=== PATIENT | male | born 1945 | race Caucasian/White ===

== ENCOUNTER 2017-01-09 12:12 | Emergency (ER) | payer OTHER ==
[2017-01-09 13:42] LABS: Hematocrit 46 % (42-52); Mean Corpuscular HGB Conc 33 g/dl (31-36); Mean Corpuscular Hemoglobin 31 pg (27-31); Mean Corpuscular Volume 94 fL (80-94); Mean Platelet Volume 7 um3 (7.4-10.4); Red Blood Count 4.83 10^6/ul (4.0-5.4); Red Cell Distribution Width 14 % (10.5-15); White Blood Count 13.3 10^3/ul (3.5-10.8)
[2017-01-09] MEDS ORDERED: Morphine INJ* 4 MG/ML 1 ML SYRINGE IV ONE (13:56)
[2017-01-09] MEDS ORDERED: Ondansetron INJ* 2 MG/ML VIAL IV ONE (13:56)
[2017-01-09 14:21] LABS: EGFR Non-African American 63.8 (>60); Potassium 4.4 mmol/L (3.5-5.0)
[2017-01-09 15:16] LABS: BUN/Creatinine Ratio 24.8 (8-20)
[2017-01-09 15:58] LABS: Urine Bacteria Absent (Absent); Urine Bilirubin Negative (Negative); Urine Glucose 2+(150 mg/dL) (Negative); Urine Nitrite Negative (Negative)
[2017-01-09] MEDS ORDERED: Sulfamethox/Trimethoprim DS 800/160* TAB PO ONE (15:59)
[2017-01-09 16:31] VITALS: BP 156/79
--- NOTE | 2017-01-09 19:23 | CONS ---
CC: Dr. Wesley Noble, [facility] * CONSULTATION REPORT: DATE OF CONSULT: 01/09/17 - emergency room consult. HISTORY OF PRESENT ILLNESS: I was asked by the emergency room staff to see this 71-year-old white male because of urinary retention. Mr. Troncoso has a long history of obstructive voiding symptoms with decreased urinary stream and spraying with his voiding. It has not been bothersome enough to require urological consultation. Over the last 2 to 3 days, his voiding symptoms have gotten a lot worse and he presented to the emergency room today in total urinary retention. He did not have any fever, chills, or gross hematuria. In the emergency room, bladder ultrasound showed urinary retention. Attempt at placement of a Travis catheter by the nursing staff was unsuccessful because of obstruction at the level of the urethral meatus. An urgent consultation was requested. Past history is otherwise completely negative. No past history of any renal diseases or calculi. No other history of urinary retention. He is known to have a very large right inguinal hernia. He, however, has been able to reduce it. He has not sought surgical consult for it. PHYSICAL EXAM: On physical exam, he is a healthy-looking male, who is in marked discomfort because of urinary retention. His vital signs are normal. Exam of the abdomen showed significant degree of suprapubic distention and tenderness. He is uncircumcised. 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 There is a very large right inguinal hernia. The left testis appears normal. Rectal exam shows a slightly enlarged but non- suspicious and non-indurated prostate. Attempt at placement of a Travis catheter was not successful because of severe stenosis at the level of the urethral meatus and the fossa navicularis. Serial dilations were then carried starting with 12-Malawian stiff catheter and up to 16Fr. As soon as the meatus was dilated, there was a gush of urine indicating the obstruction is at the level of the meatus and not at the level of the prostate. A 16-Malawian Travis catheter was then successfully introduced inside the bladder. A total of 1,500 cc of urine was drained. The patient felt immediate relief. IMPRESSION: 1. 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 Urethra dilated and the bladder drained. 2. Very Large right inguinal hernia. PLAN: To keep him on catheter drainage. I will see him in my office in a few days where the Travis will be removed and he will be instructed how to perform periodic dilations of the distal urethra to keep it open. He will need to be referred for General Surgery for repair of his right inguinal hernia. [id number]/[facility] #: [id number] MTDD
--- NOTE | 2017-01-12 10:23 | PN ---
Progress Note - Progress Note Date of Service: 01/09/17 Note: patient treated for UTI with Bactrim at d/c. urine culture result showed growth of strep group b which is susceptible to commonly used antimicrobials to treat UTI. No further change needed at this time.
--- NOTE | 2017-01-28 15:17 | ED ---
Heather Payne Edward, scribed for Francisco Chase MD on 01/09/17 at 1243 . GI/ HPI - HPI Summary HPI Summary: 71 y/o male presents to ED c/o ABD and testicular discomfort described as a pressure radiating to the back and decreased urination. The ABD pain is located in the suprapubic region. Pt has difficulty standing due to pain. The pain in the back is resolved now. The pt last urinated at midnight this morning with dysuria (trickle). Pt also states he feels like he has a "jock itch on the inside of his penis". Denies trauma. PMHx coxic, no kidney stones, no prostate problems. Associated sx: diaphoresis (this morning), and poor PO intake. Denies hematuria. - History of Current Complaint Chief Complaint: EDUrogenitalProblems Time Seen by Provider: 01/09/17 12:39 Stated Complaint: UNABLE TO GO TO URINATE Hx Obtained From: Patient Onset/Duration: Started Hours Ago - Last urination last night, Still Present Timing: Constant Pain Intensity: 10 Location of Pain: Suprapubic Pain Characteristics: Pressure Pain Radiates to: Back Associated Signs and Symptoms: Positive: Back Pain, Diaphoresis, Dysuria, Abdominal Pain, Other: - Hasn't urinated since midnight this morning. 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 Negative: Fever, Chills Negative: Erythema Negative: Sore Throat Negative: Chest Pain Negative: Shortness Of Breath, Cough Positive: Abdominal Pain - Suprapubic pressure radiating to the back. Negative : Vomiting, Nausea Genitourinary: Other - Decreased frequency. Pressure in testicles. "Jock itch on the inside of the penis" Positive: dysuria. Negative: hematuria Negative: Myalgia Negative: Rash Neurological: Other - No dizziness All Other Systems Reviewed And Are Negative: Yes Physical Exam - Summary Physical Exam Summary: Constitutional: Well-developed, Well-nourished, Alert. (-) Distressed Skin: Warm, Dry HENT: Normocephalic; Atraumatic Eyes: Conjunctiva normal Neck: Musculoskeletal ROM normal neck. (-) JVD, (-) Stridor, (-) Tracheal deviation Cardio: Rhythm regular, rate normal, Heart sounds normal; Intact distal pulses; The pedal pulses are 2+ and symmetric. Radial pulses are 2+ and symmetric. (-) Murmur Pulmonary/Chest wall: Effort normal. (-) Respiratory distress, (-) Wheezes, (-) Rales Abd: Bladder fullness and TTP on exam. Soft, (-) Distension, (-) Guarding, (-) Rebound Musculoskeletal: (-) Edema Lymph: (-) Cervical adenopathy Neuro: Alert, Oriented x3 Psych: Mood and affect Normal Triage Information Reviewed: Yes Vital Signs On Initial Exam: Initial Vitals Temp Pulse Resp BP Pulse Ox 97.1 F 52 16 154/94 98 01/09/17 12:22 01/09/17 12:22 01/09/17 12:22 01/09/17 12:22 01/09/17 12:22 Vital Signs Reviewed: Yes Diagnostics - Vital Signs Vital Signs Temp Pulse Resp BP Pulse Ox 01/09/17 12:22 97.1 F 52 16 154/94 98 - Laboratory Lab Results: Lab Results 01/09/17 01/09/17 01/09/17 Range/Units 13:25 13:25 15:45 WBC 13.3 H (3.5-10.8) 10^3/ul RBC 4.83 (4.0-5.4) 10^6/ul Hgb 15.0 (14.0-18.0) g/dl Hct 46 (42-52) % MCV 94 (80-94) fL MCH 31 (27-31) pg MCHC 33 (31-36) g/dl RDW 14 (10.5-15) % Plt Count 250 (150-450) 10^3/ul MPV 7 L (7.4-10.4) um3 Sodium 137 (133-145) mmol/L Potassium 4.4 (3.5-5.0) mmol/L Chloride 107 (101-111) mmol/L Carbon Dioxide 21 L (22-32) mmol/L Anion Gap 9 (2-11) mmol/L BUN 28 H (6-24) mg/dL Creatinine 1.13 (0.67-1.17) mg/dL Est GFR ( Amer) 82.0 (>60) Est GFR (Non-Af Amer) 63.8 (>60) BUN/Creatinine Ratio 24.8 H (8-20) Glucose 205 H (70-100) mg/dL Calcium 11.0 H (8.6-10.3) mg/dL Urine Color Yellow Urine Appearance Cloudy Urine pH 5.0 (5-9) Ur Specific Gray 1.023 (1.010-1.030) Urine Protein Negative (Negative) Urine Ketones Negative (Negative) Urine Blood 3+ H (Negative) Urine Nitrate Negative (Negative) Urine Bilirubin Negative (Negative) Urine Urobilinogen Negative (Negative) Ur Leukocyte Esterase 1+ H (Negative) Urine WBC (Auto) 3+(>20/hpf) H (Absent) Urine RBC (Auto) 3+(>10/hpf) H (Absent) Ur Squamous Epith Cells Present H (Absent) Urine Bacteria Absent (Absent) Urine Glucose 2+(150 mg/dl) H (Negative) Result Diagrams: 01/09/17 13:25 01/09/17 13:25 Lab Statement: Any lab studies that have been ordered have been reviewed, and results considered in the medical decision making process. Re-Evaluation - Re-Evaluation 1 Re-Evaluation Time: 16:00 - Discussed plan with pt GIGU Course/Dx - Course Assessment/Plan: 71 y/o male presents to ED c/o ABD and testicular discomfort described as a pressure radiating to the back and decreased urination. The ABD pain is located in the suprapubic region. Pt has difficulty standing due to pain. The pain in the back is resolved now. The pt last urinated at midnight this morning (trickle). Pt also states he feels like he has a "jock itch on the inside of his penis". Denies trauma. PMHx coxic, no kidney stones, no prostate problems. Associated sx: diaphoresis (this morning), and poor PO intake. Denies hematuria. Spoke with Dr. Schwab (Urology) who will come to the ED to see the patient. Pt will be d/c home with f/u with Dr. Schwab in 3-5 days. - Diagnoses Provider Diagnoses: Urethral stricture, UTI (urinary tract infection), Acute urinary retention - Physician Notifications Discussed Care Of Patient With: Reinaldo Schwab Time Discussed With Above Provider: 14:30 Instructed by Provider To: MD Will See In ED Discharge - Discharge Plan Condition: Stable Disposition: HOME Prescriptions: Sulfamethox/Trimethoprim DS* [Bactrim DS 800/160 TAB*] 1 tab PO BID #10 tab Patient Education Materials: Urinary Tract Infection in Men (ED), Urinary Retention in Men (ED) Referrals: Reinaldo Schwab MD [Medical Doctor] - 3 Days (Please f/u in 3-5 days) The documentation as recorded by the Heather avendano Edward accurately reflects the service I personally performed and the decisions made by , Francisco Chase MD.
== END 2017-01-09 16:30 | disposition home or self-care (01) ==
LOC: ED 12:12
DX: N35.9 Urethral stricture, unspecified (principal); N39.0 Urinary tract infection, site not specified; B95.1 Streptococcus, group B, as the cause of diseases classified elsewhere; R33.9 Retention of urine, unspecified; B35.6 Tinea cruris; K40.90 Unilateral inguinal hernia, without obstruction or gangrene, not specified as recurrent; Z88.8 Allergy status to other drugs, medicaments and biological substances; Z72.0 Tobacco use
CPT/HCPCS: 36415; 51702; 80048; 81003; 81015; 85027; 87077; 87086; 96374; 96375; 99282; A9270-GY; J2270; J2405

== ENCOUNTER 2017-02-16 08:37 | Inpatient (IN) | payer OTHER ==
[~2017-02-16 08:37] MED LIST: Famotidine IV* 10 MG/ML 2 ML (20 mg) IV ONE; Morphine INJ* 2 MG/ML 1 ML CARPUJECT IV PRN; Ondansetron INJ* 2 MG/ML VIAL IV PRN; PROCHLORPERAZINE INJ 5 MG/ML 2 ML VIAL IV PRN; oxyCODONE/Acetamin 5/325 MG* TAB PO PRN
[2017-02-16] MEDS ORDERED: ceFAZolin 2 GM PREMIX (*) 50 ML IVPB ONE (09:12)
[2017-02-16] MEDS ORDERED: Buffered Lidocaine 0.9% SYRIN* 5 ML/SYR SYRINGE ONE (09:12)
[2017-02-16] MEDS ORDERED: Famotidine IV* 10 MG/ML 2 ML (20 mg) ONE (09:12)
[2017-02-16] MEDS: Buffered Lidocaine 0.9% SYRIN* 5 ML/SYR SYRINGE INTRADERM ONE ×2 (09:27→16:33)
[2017-02-16] MEDS ORDERED: KETAMINE HCL* 50 MG/ML 10 ML VIAL ONE (09:33)
[2017-02-16] MEDS ORDERED: fentaNYL* 50 MCG/ML 2 ML VIAL (100 MCG VIAL) ONE ×2 (09:33→14:41)
[2017-02-16] MEDS ORDERED: Midazolam* 1 MG/ML 5 ML VIAL (5 MG) ONE (09:33)
[2017-02-16] MEDS ORDERED: Atracurium* 10 MG/ML 10 ML VIAL ONE (09:33)
[2017-02-16] MEDS ORDERED: Ondansetron INJ* 2 MG/ML VIAL ONE (09:47)
[2017-02-16] MEDS ORDERED: PROCHLORPERAZINE INJ 5 MG/ML 2 ML VIAL ONE (09:47)
[2017-02-16] MEDS ORDERED: Scopolamine 1.5 mg* PATCH ONE (09:47)
[2017-02-16] MEDS ORDERED: Bupivacaine 0.5% SDV PF* 30 ML VIAL ONE (10:34)
[2017-02-16] MEDS ORDERED: Lidocaine 1% INJ* 10 MG/ML 30 ML SDV ONE (10:34)
[2017-02-16] MEDS ORDERED: Diltiazem IV* 5 MG/ML 5 ML VIAL (for loading dose/IV Push) (25 MG) ONE ×2 (11:27→12:17)
[2017-02-16] MEDS ORDERED: Morphine INJ* 10 MG/ML 1 ML CARPUJECT ONE ×2 (11:55→14:41)
[2017-02-16] MEDS ORDERED: Propofol* 10 MG/ML 20 ML BTL IV PUSH ONE (12:16)
[2017-02-16] MEDS ORDERED: Lidocaine 2% PF * 5 ML VIAL ONE (12:16)
[2017-02-16] MEDS ORDERED: Glycopyrrolate IV* 0.2 MG/ML 1 ML VIAL ONE (12:16)
[2017-02-16] MEDS ORDERED: Neostigmine Methylsulfate* 2 MG/2 ML SYRINGE ONE (12:16)
[2017-02-16] MEDS ORDERED: Metoprolol Tartrate IV* 1 MG/ML 5 ML VIAL ONE ×2 (12:16→16:13)
[2017-02-16] MEDS ORDERED: Phenylephrine INJ* 10 MG/ML 1 ML VIAL (10 MG) ONE (12:31)
[2017-02-16] MEDS ORDERED: HYDROmorphone* 1 MG/ML 1 ML CARPUJECT IV PRN (14:08)
[2017-02-16] MEDS ORDERED: Dextrose 50% Syringe 50 ML* 25 GM/50 ML SYRINGE IV PUSH PRN (14:15)
--- NOTE | 2017-02-16 14:20 | PN ---
Progress Note - Progress Note Date of Service: 02/16/17 Note: Brief operative Note: Pre-op: Incarcerated right inguinal hernia Post-op: Same Procedure: Right inguinal hernia repair with mesh, Exploratory laparotomy with repair of cecal serosal tear. Surgeon: Dr. Robles Software Engineer Developer: Jesse Cade Anaesthesia: GETA EBL: <100 cc Fluids: LR 2000 cc Drains: None Catheter: Travis to gravity Specimen: Hernia sac Findings: See dictated op note
[2017-02-16] MEDS ORDERED: Morphine INJ* 4 MG/ML 1 ML CARPUJECT ONE (14:24)
[2017-02-16] MEDS ORDERED: Insulin REGULAR(*) 1 UNITS UNIT ONE (14:27)
[2017-02-16] MEDS: fentaNYL* 50 MCG/ML 2 ML VIAL (100 MCG VIAL) IV PRN ×4 (14:43→15:54)
[2017-02-16] MEDS ORDERED: ceFAZolin 1 GM VIAL(*) 1 GM in NS 0.9% 50 ML* 50 ML IVPB SCH (15:00)
[2017-02-16 15:48] LABS: Magnesium 1.9 mg/dL (1.9-2.7)
[2017-02-16] MEDS: Metoprolol Tartrate IV* 1 MG/ML 5 ML VIAL IV PRN ×2 (16:14→22:51)
[2017-02-16 16:21] LABS: TSH (Thyroid Stimulating Horm) 2.53 mcIU/mL (0.34-5.60)
--- NOTE | 2017-02-16 16:35 | CONS ---
CC: Dr. Maya; Dr. Robles * CONSULTATION REPORT: DATE OF CONSULT: 02/16/17 PRIMARY CARE PHYSICIAN: Dr. Maya. ATTENDING PHYSICIAN WHILE IN THE HOSPITAL: Unruly Ferrari MD (report dictated by Ramez Edmonds NP). REQUESTING PHYSICIAN FOR CONSULTATION: Dr. Robles. REASON FOR CONSULT: Evaluation and management of comorbid medical conditions. HISTORY OF PRESENT ILLNESS: Mr. Troncoso is a 71-year-old male patient. He has a history of diabetes, atrial flutter, and urethral obstruction requiring dilatation in the past. I will say that I cannot get much history from the patient as he is in the PACU currently and he is in a severe amount of pain after having the procedure. Most of the H and P is obtained from reviewing notes and also discussion with Dr. Robles. Mr. Troncoso is a 71-year-old male patient who was referred to Dr. Robles for an inguinal hernia. The patient had reported that he had it for 1-1/2 years. He had been following Dr. Noble initially for this and he had opted to have no surgery. He saw Dr. Schwab 2 days prior to seeing Dr. Robles and it was felt that the hernia should be repaired. He was evaluated by Dr. Maya. According to records, he was deemed appropriate for surgery and the patient underwent the procedure today. However, while in the preop holding area, the patient was discussing with Dr. Robles that he was having more scrotal pain. He was unable to reduce the hernia. He says he had not been able to reduce it in the last few days. Dr. Robles could not reduce the hernia, so he took him into the OR and ultimately, it was felt that he had an incarcerated hernia and he underwent the hernia repair today. However, preoperatively it was noted that he was in AFib with RVR. His heart rate was noted to be in the 130s. He was taken to the OR. The heart rate has now slowed, but because of the AFib and the diabetes, we were asked to evaluate in consult. PAST MEDICAL HISTORY: Significant for: 1. Diabetes. 2. Aflutter. 3. Urethral stricture causing urinary retention. 4. Hyperlipidemia. PAST SURGICAL HISTORY: He has had urethral dilatation and now he has had an inguinal hernia repair. MEDICATIONS: His home meds according to the list that we were able to obtain include: 1. Flomax 0.4 mg daily. 2. Glucophage 1000 mg at bedtime. 3. Tums 500 mg p.o. b.i.d. as needed. 4. Aspirin 81 mg daily. ALLERGIES: To medications: CODEINE, LIPITOR, and SUDAFED. FAMILY HISTORY: Unable to be obtained. SOCIAL HISTORY: He is a former smoker for 10 to 15 years. Occasionally consumes alcohol. REVIEW OF SYSTEMS: Again, unable to be obtained at this point as the patient is fairly sedate and he is actually writhing in pain and he is coming out of anesthesia. PHYSICAL EXAM: Vital Signs: Blood pressure 120/71 with a pulse of 80; respirations 20; O2 sat 97%; temperature 97.9. General: At this time, Mr. Troncoso is a 71-year-old male patient. He is sitting in the PACU bed. He does appear to be in a significant amount of pain. He does not appear to be in any acute respiratory distress. HEENT: Head atraumatic, normocephalic. Eyes: EOMs intact. Sclerae anicteric. Neck: Supple. Throat: Oral mucosa appears to be dry. No oropharyngeal erythema. Heart: Sounds S1, S2. Irregularly irregular rate. No murmurs, rubs, or gallops. Lungs: Diminished at the bases. No wheezes, rales, or rhonchi. Abdomen: Soft. Bowel sounds are hypoactive. He does have tenderness along the incision site. Neurologically, again he is drowsy but he will awaken to his name. He will follow commands. He does not appear to have any gross focal deficits. His skin is intact with the exception he has got a midline abdominal incision which is covered with a ABD which is clean, dry, and intact. DIAGNOSTIC STUDIES/LAB DATA: His labs preoperatively, WBC of 13.3, RBC of 4.83 , hemoglobin 15.0, hematocrit of 46, and platelet count 250,000. Sodium was 137 , potassium 4.4, chloride of 107, bicarb 21, BUN 28, his creatinine was 1.13, glucose 205, A1c was 7. I do not see a preoperative EKG. Old medical records were reviewed that were available to me. ASSESSMENT AND PLAN: Mr. Troncoso is a 71-year-old male patient with known history of atrial fibrillation, diabetes, and he has had an inguinal hernia for some time. Recently evaluated by Dr. Schwab for urinary retention. A Travis was placed and it was felt that he should have his hernia repaired. He was referred to Dr. Robles. He was undergoing the procedure today and it was felt that prior to the procedure, he was incarcerated, so he went to the OR urgently and this was repaired. Prior to the OR, it was noted that he was in atrial fibrillation with rapid ventricular response and we were asked to consult. Recommendations at this point are: 1. Status post inguinal hernia repair: I will defer the management to Dr. Robles' team. 2. Diabetes: We will put him on a lispro sliding scale q.6 hours while he is n.p.o. When he is taking p.o., then I would recommend a consistent carb diet and a.c. coverage with a.c. fingersticks. 3. Atrial flutter and atrial fibrillation: He is not on anticoagulation which is something that should be addressed by the primary. He has got a history of diabetes, hyperlipidemia, and hypertension, so he may be a candidate for anti- coagulation but obviously we are not going to start that now with the recent surgery, but he is rate controlled in the 80s. I did order p.r.n. metoprolol. We will follow. I suspect he went into rapid atrial fibrillation because of the pain from the hernia most likely. 4. History of urinary retention: Follow with Dr. Schwab. Continue with the Travis. 5. DVT prophylaxis: Deferred to the primary team. 6. Code status: He is a full code. 7. Fluids, electrolytes, and nutrition: He is n.p.o. TIME SPENT: Time spent on the consult was approximately 60 minutes; greater than half the time was spent [id number] with the patient obtaining my history and physical, the other half time is spent going over the plan of care with the patient and implementing plan of care. I discussed the plan of care with my attending, Dr. Ferrari, who is in agreement. RAMEZ EDMONDS, KARIN [id number]/[facility] #: [id number] DAVID
[2017-02-16] MEDS: HYDROmorphone* 1 MG/ML 1 ML CARPUJECT ONE ×2 (17:42→17:43)
[2017-02-16] MEDS: Insulin LISPRO* 1 UNITS UNIT SUBCUT SCH (18:21)
[2017-02-16] MEDS: ceFAZolin 1 GM in Dextrose (*) 1 GM/50 ML BAG IVPB SCH (21:31)
[2017-02-16] MEDS: Heparin VIAL(*) 5000 UNITS/ML VIAL (FIVE THOUSAND) SUBCUT SCH (22:31)
[2017-02-17] MEDS: Insulin LISPRO* 1 UNITS UNIT SUBCUT SCH ×4 (00:11→17:24)
[2017-02-17] MEDS ORDERED: Diltiazem IV* 5 MG/ML 5 ML VIAL (for loading dose/IV Push) (25 MG) IV SLOW PU ONE (00:54)
[2017-02-17] MEDS ORDERED: Diltiazem IV* 5 MG/ML 5 ML VIAL (for loading dose/IV Push) (25 MG) ONE (01:09)
[2017-02-17] MEDS ORDERED: Diltiazem DRIP* 100 MG/100 ML ADDV.BAG IVPB ONE (01:09)
[2017-02-17] MEDS: Diltiazem DRIP* 100 MG/100 ML ADDV.BAG IVPB ONE ×2 (01:13→11:10)
[2017-02-17] MEDS: ceFAZolin 1 GM in Dextrose (*) 1 GM/50 ML BAG IVPB SCH ×2 (04:30→11:13)
[2017-02-17] MEDS: Heparin VIAL(*) 5000 UNITS/ML VIAL (FIVE THOUSAND) SUBCUT SCH ×3 (05:58→21:21)
[2017-02-17 06:45] LABS: Hematocrit 40 % (42-52); Mean Corpuscular HGB Conc 35 g/dl (31-36); Mean Corpuscular Hemoglobin 32 pg (27-31); Mean Corpuscular Volume 92 fL (80-94); Mean Platelet Volume 7 um3 (7.4-10.4); Red Blood Count 4.36 10^6/ul (4.0-5.4); Red Cell Distribution Width 14 % (10.5-15); White Blood Count 10.4 10^3/ul (3.5-10.8)
[2017-02-17 06:58] LABS: BUN/Creatinine Ratio 18.4 (8-20); Calcium 8.3 mg/dL (8.6-10.3); EGFR African American 110.9 (>60); EGFR Non-African American 86.3 (>60); Potassium 4.1 mmol/L (3.5-5.0)
[2017-02-17] MEDS ORDERED: Magnesium Sulfate 1 GM IV* 1 GM/100 ML BAG IV ONE (09:43)
--- NOTE | 2017-02-17 10:02 | PN ---
Progress Note - Progress Note Date of Service: 02/17/17 SOAP: Subjective: He reports good pain control and per the nurse has needed no meds. Passing flatus but no appetite. Discussed surgical findings. Objective: Vital Signs Temp 99.7 F 02/17/17 08:30 Pulse 107 02/17/17 09:15 Resp 8 02/17/17 09:15 BP 90/66 02/17/17 09:15 Pulse Ox 92 02/17/17 09:15 Gen: well-appearing and in NAD; lying in bed. Abd: dressings c/d/i; tender right abdomen and midline incision to light palpation; inguinal incision with mod tenderness; scrotum with minimal tenderness and bilat descended testes. Intake & Output 02/16/17 02/17/17 02/17/17 18:59 06:59 18:59 Intake Total 100 2740 Output Total 800 Balance 100 1940 Weight 183 lb 6.793 oz 185 lb 13.595 oz Intake: IV Fluids 100 2575 LR 1595 NS 50ML, Cefazolin 1G 50 NS 50ML, Cefazolin 2G 50 IVPB 165 LR 115 Output: Travis 800 Laboratory Results - last 24 hr 02/16/17 02/16/17 02/16/17 09:35 14:20 15:20 WBC RBC Hgb Hct MCV MCH MCHC RDW Plt Count MPV Neut % (Auto) Lymph % (Auto) Christian % (Auto) Eos % (Auto) Baso % (Auto) Absolute Neuts (auto) Absolute Lymphs (auto) Absolute Monos (auto) Absolute Eos (auto) Absolute Basos (auto) Absolute Nucleated RBC Nucleated RBC % Sodium Potassium Chloride Carbon Dioxide Anion Gap BUN Creatinine Est GFR ( Amer) Est GFR (Non-Af Amer) BUN/Creatinine Ratio Glucose POC Glucose (mg/dL) 184 H 232 H Calcium Magnesium 1.9 TSH 2.53 02/16/17 02/16/17 02/16/17 15:43 18:17 22:57 WBC RBC Hgb Hct MCV MCH MCHC RDW Plt Count MPV Neut % (Auto) Lymph % (Auto) Christian % (Auto) Eos % (Auto) Baso % (Auto) Absolute Neuts (auto) Absolute Lymphs (auto) Absolute Monos (auto) Absolute Eos (auto) Absolute Basos (auto) Absolute Nucleated RBC Nucleated RBC % Sodium Potassium Chloride Carbon Dioxide Anion Gap BUN Creatinine Est GFR ( Amer) Est GFR (Non-Af Amer) BUN/Creatinine Ratio Glucose POC Glucose (mg/dL) 216 H 189 H 147 H Calcium Magnesium TSH 02/17/17 02/17/17 02/17/17 06:10 06:10 06:16 WBC 10.4 RBC 4.36 Hgb 14.0 Hct 40 L MCV 92 MCH 32 H MCHC 35 RDW 14 Plt Count 220 MPV 7 L Neut % (Auto) 82.7 Lymph % (Auto) 12.1 L Christian % (Auto) 4.9 Eos % (Auto) 0 Baso % (Auto) 0.3 Absolute Neuts (auto) 8.6 H Absolute Lymphs (auto) 1.3 Absolute Monos (auto) 0.5 Absolute Eos (auto) 0 Absolute Basos (auto) 0 Absolute Nucleated RBC 0 Nucleated RBC % 0 Sodium 134 Potassium 4.1 Chloride 105 Carbon Dioxide 21 L Anion Gap 8 BUN 16 Creatinine 0.87 Est GFR ( Amer) 110.9 Est GFR (Non-Af Amer) 86.3 BUN/Creatinine Ratio 18.4 Glucose 113 H POC Glucose (mg/dL) 149 H Calcium 8.3 L Magnesium TSH Assessment: POD#1 s/p laparotomy for reduction of RIH with open RIHR with mesh. Rapid afib now rate controlled. Plan: Appreciate Hospitalist management. Will allow clears for now and slowly advance. Probably d/c tomorrow.
[2017-02-17] MEDS: Diltiazem TAB* 60 MG PO SCH ×2 (11:36→17:16)
--- NOTE | 2017-02-17 12:34 | OP ---
CC: Wesley Noble MD OPERATIVE REPORT: DATE OF OPERATION: 02/16/2017. SURGEON: Wesley Robles MD. ASSISTANTS: AILEEN Odonnell. ANESTHESIOLOGIST: Juan Pablo Yee MD. ANESTHESIA: General endotracheal. PREOPERATIVE DIAGNOSIS: Incarcerated right inguinal scrotal hernia. POSTOPERATIVE DIAGNOSIS: Incarcerated right inguinal scrotal hernia. OPERATIVE PROCEDURE: Laparotomy with reduction of incarcerated right inguinal hernia with open right inguinal hernia repair with mesh, via inguinal approach, also repair of serosal injury to cecum. ESTIMATED BLOOD LOSS: Less than 50 mL. IV FLUIDS: Crystalloids. SPECIMENS: None. DRAINS: None. COMPLICATIONS: None. COUNTS: The instrument, needle and sponge counts were correct. DESCRIPTION OF PROCEDURE: The patient was brought to the operating room and placed on the table supine. He had sequential compression devices, placed on both lower extremities and general anesthesia was administered. He had a Travis catheter placed. Attempts were made to reduce the inguinal scrotal hernia and this was unsuccessful. The patient's abdomen and scrotum were prepped and draped in the usual sterile fashion and then timeout was performed. A midline laparotomy was performed and there was no evidence of dilated bowel. There was small bowel and cecum incarcerated in the right hemiscrotum and this was reduced with external compression and internal traction on the bowel. After the bowel was reduced, it was inspected. There were noted to be numerous serosal tears on the cecum that would ultimately require repair. First, however , the repair of the inguinal hernia was performed via a right inguinal incision made obliquely and the external oblique aponeurosis was divided. The contents of the inguinal canal were circled with Chana drain and the large hernia was completely reduced. Along with it came the testicle, which was subsequently returned to the scrotum. The sac was inverted and inspection revealed a hernia defect 3 to 4 cm across. It was decided to preform the repair with Ethicon Prolene Hernia System extended size patch and this was positioned so that the preperitoneal patch lay to cover the defect internally and the onlay portion of the patch was exteriorized and it was sutured to the pubic tubercle, shelving edge of the inguinal ligament and the conjoint tendon with interrupted 2-0 Polysorb and tails were cut and mesh was allowed to egress through the spermatic cord laterally and the tails were reconstituted laterally with 2-0 Polysorb. The external oblique was run close with 2-0 Polysorb. The wound was lapped off and the abdomen was entered through the midline incision once again and the inspection of the cecum revealed that there were numerous serosal tears in the cecum, however, there was no full thickness injury and it was ultimately felt this could be repaired with suture. The repair was performed with interrupted 3-0 Polysorb sutures taking seromuscular bites to repair the defects. The longest of which was about 8 cm in length running longitudinally. After completing the repair, the small bowel inspected and appeared pink and viable. The distal portion of the appendix appeared to be somewhat contused, however, this was left in-situ. Lavage was performed in the abdomen. The redundant sac was resected and the base oversewn from the inside with 2-0 Polysorb suture ligature. The midline laparotomy was closed with #1 Polysorb interrupted figure of eight fashion and the skin was closed with julisa. The inguinal incision was closed with 3-0 Polysorb for the Trae's fascia and julisa with the groin incision as well. Dressings were applied. The patient tolerated the procedure well, was extubated and transferred to the recovery room in stable condition. [id number]/[facility] #: [id number] DAVID
--- NOTE | 2017-02-17 17:28 | PN ---
Subjective Date of Service: 02/17/17 Interval History: pt was seen in AM, mildly sedated and in PM for conversation re: a. flutter and anticoagulation.. Pt was informed about his CHADSVasc score and the increased risk of CVA, not interested in "blood thinners" beyond ASA No complaints. Stated that he sometimes is and sometimes isn't in A.flutter. Objective Active Medications: Dextrose (D50w Syringe 50 Ml*) 12.5 gm IV PUSH .FOR FS < 60 - SS PRN PRN Reason: FS < 60 Diltiazem HCl (Cardizem Tab*) 60 mg PO Q6HR [facility] Last Admin: 02/17/17 17:16 Dose: 60 mg Heparin Sodium (Porcine) (Heparin Vial(*)) 5,000 units SUBCUT Q8HR [facility] Last Admin: 02/17/17 14:20 Dose: 5,000 units Hydromorphone HCl (Dilaudid Iv*) 0.5 mg IV Q1H PRN PRN Reason: PAIN - SEVERE Last Admin: 02/16/17 17:23 Dose: 0.5 mg Lactated Ringer's (Lactated Ringers 1000 Ml Bag*) 1,000 mls @ 125 mls/hr IV .per rate [facility] Last Admin: 02/17/17 17:16 Dose: 125 mls/hr Diltiazem HCl (Cardizem Iv Advan*) 100 mg in 100 mls @ 5 mls/hr IVPB ONCE ONE Stop: 02/17/17 20:52 Last Admin: 02/17/17 11:10 Dose: 12 mls/hr Insulin Human Lispro (Humalog*) 0 units SUBCUT Q6HR [facility] PRN Reason: Protocol Last Admin: 02/17/17 11:36 Dose: 2 units Metoprolol Tartrate (Lopressor Iv*) 5 mg IV Q6H PRN PRN Reason: HEART RATE/PULSE GREATER THAN: Last Admin: 02/16/17 22:51 Dose: 5 mg Ondansetron HCl (Zofran Inj*) 4 mg IV Q4H PRN PRN Reason: NAUSEA/VOMITING Vital Signs 02/16/17 02/16/17 02/16/17 17:31 18:00 18:30 Temperature Pulse Rate 102 106 97 Respiratory 16 15 15 Rate Blood Pressure 107/74 111/90 119/86 (mmHg) O2 Sat by Pulse 98 96 98 Oximetry 02/16/17 02/16/17 02/16/17 19:00 19:30 20:00 Temperature Pulse Rate 114 106 115 Respiratory 15 27 17 Rate Blood Pressure 122/76 114/79 118/83 (mmHg) O2 Sat by Pulse 97 87 91 Oximetry 02/16/17 02/16/17 02/16/17 20:30 21:00 21:30 Temperature Pulse Rate 108 119 96 Respiratory 16 17 17 Rate Blood Pressure 113/91 98/88 115/72 (mmHg) O2 Sat by Pulse 96 95 95 Oximetry 02/16/17 02/16/17 02/16/17 22:00 22:31 23:00 Temperature Pulse Rate 126 138 102 Respiratory 21 20 Rate Blood Pressure 124/87 115/86 109/77 (mmHg) O2 Sat by Pulse 92 93 92 Oximetry 02/16/17 02/17/17 02/17/17 23:30 00:00 01:00 Temperature Pulse Rate 116 118 Respiratory 21 20 22 Rate Blood Pressure 114/86 116/76 104/76 (mmHg) O2 Sat by Pulse 92 91 Oximetry 02/17/17 02/17/17 02/17/17 01:25 01:30 01:45 Temperature Pulse Rate 82 88 Respiratory 25 22 21 Rate Blood Pressure 95/69 97/68 92/64 (mmHg) O2 Sat by Pulse 88 89 Oximetry 02/17/17 02/17/17 02/17/17 02:00 02:12 02:15 Temperature Pulse Rate 107 104 Respiratory 19 17 Rate Blood Pressure 96/58 103/68 (mmHg) O2 Sat by Pulse 89 92 91 Oximetry 02/17/17 02/17/17 02/17/17 02:31 02:45 03:00 Temperature Pulse Rate 110 106 119 Respiratory 14 20 24 Rate Blood Pressure 88/59 104/63 81/59 (mmHg) O2 Sat by Pulse 88 93 93 Oximetry 02/17/17 02/17/17 02/17/17 03:15 03:31 03:46 Temperature Pulse Rate 112 114 119 Respiratory 24 23 18 Rate Blood Pressure 104/69 103/66 86/69 (mmHg) O2 Sat by Pulse 95 77 76 Oximetry 02/17/17 02/17/17 02/17/17 04:00 04:15 04:31 Temperature Pulse Rate 115 112 Respiratory 22 22 Rate Blood Pressure 114/76 116/65 115/77 (mmHg) O2 Sat by Pulse 94 96 Oximetry 02/17/17 02/17/17 02/17/17 04:46 05:00 05:01 Temperature Pulse Rate Respiratory 21 20 23 Rate Blood Pressure 106/70 119/51 (mmHg) O2 Sat by Pulse Oximetry 02/17/17 02/17/17 02/17/17 05:15 05:30 05:45 Temperature Pulse Rate 116 101 Respiratory 19 18 23 Rate Blood Pressure 103/65 105/69 101/76 (mmHg) O2 Sat by Pulse 94 93 Oximetry 02/17/17 02/17/17 02/17/17 06:00 06:01 06:33 Temperature Pulse Rate 118 118 121 Respiratory 25 28 15 Rate Blood Pressure 122/70 95/73 (mmHg) O2 Sat by Pulse 92 96 93 Oximetry 02/17/17 02/17/17 02/17/17 06:46 07:00 07:16 Temperature Pulse Rate 109 116 116 Respiratory 25 22 15 Rate Blood Pressure 93/77 129/102 118/97 (mmHg) O2 Sat by Pulse 92 89 93 Oximetry 02/17/17 02/17/17 02/17/17 07:30 07:45 08:00 Temperature Pulse Rate 115 107 117 Respiratory 20 20 12 Rate Blood Pressure 121/91 126/84 (mmHg) O2 Sat by Pulse 93 91 71 Oximetry 02/17/17 02/17/17 02/17/17 08:03 08:16 08:30 Temperature 99.7 F Pulse Rate 98 108 111 Respiratory 24 20 17 Rate Blood Pressure 97/70 91/53 94/64 (mmHg) O2 Sat by Pulse 92 91 93 Oximetry 02/17/17 02/17/17 02/17/17 08:45 09:00 09:15 Temperature Pulse Rate 116 108 107 Respiratory 16 22 8 Rate Blood Pressure 98/65 95/64 90/66 (mmHg) O2 Sat by Pulse 93 93 92 Oximetry 02/17/17 02/17/17 02/17/17 09:45 10:00 10:15 Temperature Pulse Rate 110 100 103 Respiratory 27 22 Rate Blood Pressure 100/66 95/62 94/63 (mmHg) O2 Sat by Pulse 91 96 95 Oximetry 02/17/17 02/17/17 02/17/17 10:30 10:45 11:00 Temperature Pulse Rate 110 100 96 Respiratory 19 14 21 Rate Blood Pressure 100/71 95/65 94/64 (mmHg) O2 Sat by Pulse 92 91 89 Oximetry 02/17/17 02/17/17 02/17/17 11:16 11:28 11:32 Temperature 99.2 F Pulse Rate 106 102 Respiratory 10 20 Rate Blood Pressure 98/63 98/70 (mmHg) O2 Sat by Pulse 94 91 Oximetry 02/17/17 02/17/17 02/17/17 11:45 11:52 11:54 Temperature Pulse Rate 108 98 Respiratory 30 17 18 Rate Blood Pressure 96/70 94/66 (mmHg) O2 Sat by Pulse 94 93 Oximetry 02/17/17 02/17/17 02/17/17 12:00 12:15 12:30 Temperature Pulse Rate 102 101 109 Respiratory 18 23 18 Rate Blood Pressure 98/74 110/73 103/75 (mmHg) O2 Sat by Pulse 89 94 Oximetry 02/17/17 02/17/17 02/17/17 12:45 13:00 13:01 Temperature Pulse Rate 104 101 94 Respiratory 17 25 23 Rate Blood Pressure 107/74 99/90 (mmHg) O2 Sat by Pulse 93 92 93 Oximetry 02/17/17 02/17/17 02/17/17 13:11 13:13 13:15 Temperature Pulse Rate 89 96 99 Respiratory 16 21 27 Rate Blood Pressure 87/57 113/71 109/74 (mmHg) O2 Sat by Pulse 94 86 93 Oximetry 02/17/17 02/17/17 02/17/17 13:30 13:45 14:00 Temperature Pulse Rate 96 93 98 Respiratory 25 25 27 Rate Blood Pressure 104/75 106/68 113/69 (mmHg) O2 Sat by Pulse 94 93 93 Oximetry 02/17/17 02/17/17 02/17/17 14:15 14:30 14:45 Temperature Pulse Rate 94 88 94 Respiratory 29 27 20 Rate Blood Pressure 107/73 95/62 95/73 (mmHg) O2 Sat by Pulse 94 94 93 Oximetry 02/17/17 02/17/17 02/17/17 15:00 15:16 15:31 Temperature Pulse Rate 90 86 96 Respiratory 24 20 12 Rate Blood Pressure 110/65 112/79 107/76 (mmHg) O2 Sat by Pulse 92 95 90 Oximetry 02/17/17 02/17/17 02/17/17 16:00 17:00 17:21 Temperature 100.2 F Pulse Rate 90 107 Respiratory 18 22 Rate Blood Pressure 100/68 114/69 (mmHg) O2 Sat by Pulse 89 94 Oximetry Oxygen Devices in Use Now: Nasal Cannula Appearance: 71 yo M in nAd, aAOx3 Eyes: No Scleral Icterus, PERRLA Ears/Nose/Mouth/Throat: NL Teeth, Lips, Gums, Mucous Membranes Moist Neck: NL Appearance and Movements; NL JVP, Trachea Midline Respiratory: Symmetrical Chest Expansion and Respiratory Effort, Clear to Auscultation Cardiovascular: NL Sounds; No Murmurs; No JVD, - - irregular Abdominal: - - soft , tender next to midline abd incision . another incision in R groin noted, no rebound, no guarding Lymphatic: No Cervical Adenopathy, No Inguinal Adenopathy Skin: No Nodules or Sclerosis Neurological: Alert and Oriented x 3, NL Muscle Strength and Tone Result Diagrams: 02/17/17 06:10 02/17/17 06:10 Microbiology and Other Data: Microbiology 02/16/17 17:25 Nasal Screen MRSA (PCR)(OSCAR) - Final Nasal Mrsa Negative Assess/Plan/Problems-Billing Assessment: 71 yo m with h/o a. flutter and DM s/p strangulated inguinal hernia repair. Medicine consult - Patient Problems (1) Atrial flutter Comment: with RVR, weaned off cardizem gtt to cardizem PO Not interested in anticoagulation (2) DM2 (diabetes mellitus, type 2) Comment: cont ISS, holding metformin (3) Inguinal hernia Comment: as per Dr. Robles (4) DVT prophylaxis Comment: heparin sc Status and Disposition: Medicine consult
[2017-02-17] MEDS: Ondansetron INJ* 2 MG/ML VIAL IV PRN (23:59)
[2017-02-18] MEDS: Insulin LISPRO* 1 UNITS UNIT SUBCUT SCH ×2 (00:27→06:10)
[2017-02-18] MEDS: Diltiazem TAB* 60 MG PO SCH ×2 (00:27→05:21)
[2017-02-18] MEDS: Metoprolol Tartrate IV* 1 MG/ML 5 ML VIAL IV PRN (01:50)
[2017-02-18] MEDS: Ondansetron INJ* 2 MG/ML VIAL IV PRN (04:54)
[2017-02-18] MEDS: Heparin VIAL(*) 5000 UNITS/ML VIAL (FIVE THOUSAND) SUBCUT SCH ×3 (05:22→22:17)
[2017-02-18 05:30] LABS: BUN/Creatinine Ratio 24.3 (8-20); Calcium 8.5 mg/dL (8.6-10.3); EGFR African American 133.7 (>60); Potassium 3.9 mmol/L (3.5-5.0)
--- NOTE | 2017-02-18 08:34 | PN ---
Subjective Date of Service: 02/18/17 Interval History: Pt c/o heartburn. Passed flatus last night, had been burping a lot HR remains in low 100's -a. flutter, frequent PVC's on telem Objective Active Medications: Dextrose (D50w Syringe 50 Ml*) 12.5 gm IV PUSH .FOR FS < 60 - SS PRN PRN Reason: FS < 60 Diltiazem HCl (Cardizem Cd Cap*) 240 mg PO [facility]ILY [facility] Heparin Sodium (Porcine) (Heparin Vial(*)) 5,000 units SUBCUT Q8HR [facility] Last Admin: 02/18/17 05:22 Dose: 5,000 units Hydromorphone HCl (Dilaudid Iv*) 0.5 mg IV Q1H PRN PRN Reason: PAIN - SEVERE Last Admin: 02/16/17 17:23 Dose: 0.5 mg Insulin Human Lispro (Humalog*) 0 units SUBCUT Q6HR [facility] PRN Reason: Protocol Last Admin: 02/18/17 06:10 Dose: 4 units Metoprolol Tartrate (Lopressor Iv*) 5 mg IV Q6H PRN PRN Reason: HEART RATE/PULSE GREATER THAN: Last Admin: 02/18/17 01:50 Dose: 5 mg Ondansetron HCl (Zofran Inj*) 4 mg IV Q4H PRN PRN Reason: NAUSEA/VOMITING Last Admin: 02/18/17 04:54 Dose: 4 mg Vital Signs 02/17/17 02/17/17 02/17/17 08:45 09:00 09:15 Temperature Pulse Rate 116 108 107 Respiratory 16 22 8 Rate Blood Pressure 98/65 95/64 90/66 (mmHg) O2 Sat by Pulse 93 93 92 Oximetry 02/17/17 02/17/17 02/17/17 09:45 10:00 10:15 Temperature Pulse Rate 110 100 103 Respiratory 27 22 Rate Blood Pressure 100/66 95/62 94/63 (mmHg) O2 Sat by Pulse 91 96 95 Oximetry 02/17/17 02/17/17 02/17/17 10:30 10:45 11:00 Temperature Pulse Rate 110 100 96 Respiratory 19 14 21 Rate Blood Pressure 100/71 95/65 94/64 (mmHg) O2 Sat by Pulse 92 91 89 Oximetry 02/17/17 02/17/17 02/17/17 11:16 11:28 11:32 Temperature 99.2 F Pulse Rate 106 102 Respiratory 10 20 Rate Blood Pressure 98/63 98/70 (mmHg) O2 Sat by Pulse 94 91 Oximetry 02/17/17 02/17/17 02/17/17 11:45 11:52 11:54 Temperature Pulse Rate 108 98 Respiratory 30 17 18 Rate Blood Pressure 96/70 94/66 (mmHg) O2 Sat by Pulse 94 93 Oximetry 02/17/17 02/17/17 02/17/17 12:00 12:15 12:30 Temperature Pulse Rate 102 101 109 Respiratory 18 23 18 Rate Blood Pressure 98/74 110/73 103/75 (mmHg) O2 Sat by Pulse 89 94 Oximetry 02/17/17 02/17/17 02/17/17 12:45 13:00 13:01 Temperature Pulse Rate 104 101 94 Respiratory 17 25 23 Rate Blood Pressure 107/74 99/90 (mmHg) O2 Sat by Pulse 93 92 93 Oximetry 02/17/17 02/17/17 02/17/17 13:11 13:13 13:15 Temperature Pulse Rate 89 96 99 Respiratory 16 21 27 Rate Blood Pressure 87/57 113/71 109/74 (mmHg) O2 Sat by Pulse 94 86 93 Oximetry 02/17/17 02/17/17 02/17/17 13:30 13:45 14:00 Temperature Pulse Rate 96 93 98 Respiratory 25 25 27 Rate Blood Pressure 104/75 106/68 113/69 (mmHg) O2 Sat by Pulse 94 93 93 Oximetry 02/17/17 02/17/17 02/17/17 14:15 14:30 14:45 Temperature Pulse Rate 94 88 94 Respiratory 29 27 20 Rate Blood Pressure 107/73 95/62 95/73 (mmHg) O2 Sat by Pulse 94 94 93 Oximetry 02/17/17 02/17/17 02/17/17 15:00 15:16 15:31 Temperature Pulse Rate 90 86 96 Respiratory 24 20 12 Rate Blood Pressure 110/65 112/79 107/76 (mmHg) O2 Sat by Pulse 92 95 90 Oximetry 02/17/17 02/17/17 02/17/17 16:00 17:00 17:21 Temperature 100.2 F Pulse Rate 90 107 Respiratory 18 22 Rate Blood Pressure 100/68 114/69 (mmHg) O2 Sat by Pulse 89 94 Oximetry 0902/17/17 02/17/17 18:00 19:00 20:00 Temperature 99.2 F Pulse Rate 107 104 103 Respiratory 19 18 15 Rate Blood Pressure 113/80 103/78 103/73 (mmHg) O2 Sat by Pulse 86 91 89 Oximetry 02/17/17 02/17/17 02/17/17 21:00 22:00 22:01 Temperature Pulse Rate 114 112 118 Respiratory 25 18 17 Rate Blood Pressure 116/71 85/73 (mmHg) O2 Sat by Pulse 94 93 81 Oximetry 02/17/17 02/17/17 02/17/17 23:00 23:27 23:47 Temperature 100.0 F Pulse Rate 108 119 Respiratory 22 26 Rate Blood Pressure 107/73 (mmHg) O2 Sat by Pulse 91 93 Oximetry 02/18/17 02/18/17 02/18/17 00:00 01:00 02:00 Temperature Pulse Rate 123 117 106 Respiratory 22 23 22 Rate Blood Pressure 126/76 110/80 136/80 (mmHg) O2 Sat by Pulse 97 92 96 Oximetry 02/18/17 02/18/17 02/18/17 02:09 03:00 04:00 Temperature 98.5 F Pulse Rate 104 118 Respiratory 18 20 Rate Blood Pressure 129/85 121/92 (mmHg) O2 Sat by Pulse 97 94 95 Oximetry 02/18/17 02/18/17 02/18/17 05:00 06:00 07:47 Temperature 98.2 F Pulse Rate 126 116 Respiratory 20 20 Rate Blood Pressure 132/78 142/106 (mmHg) O2 Sat by Pulse 94 94 Oximetry Oxygen Devices in Use Now: Nasal Cannula - at 4 L Appearance: 71 yo F inNAD, AAOx3 Eyes: No Scleral Icterus, PERRLA Ears/Nose/Mouth/Throat: NL Teeth, Lips, Gums, Mucous Membranes Moist Neck: NL Appearance and Movements; NL JVP, Trachea Midline Respiratory: Symmetrical Chest Expansion and Respiratory Effort, - - crackles at b/l bases Cardiovascular: - - irregular Abdominal: - - distended today, soft, tender in pericincision areas, no rebound , no guarding, BS+ Lymphatic: No Cervical Adenopathy Extremities: No Edema, No Clubbing, Cyanosis Skin: - - post op incisions covered, not inspected Neurological: Alert and Oriented x 3, NL Muscle Strength and Tone Result Diagrams: 02/17/17 06:10 02/18/17 05:00 Microbiology and Other Data: Microbiology 02/16/17 17:25 Nasal Screen MRSA (PCR)([facility]) - Final Nasal Mrsa Negative Assess/Plan/Problems-Billing Assessment: 71 yo m with h/o a. flutter and DM s/p strangulated inguinal hernia repair. Medicine consult - Patient Problems (1) Atrial flutter Comment: with RVR, weaned off cardizem gtt to cardizem PO Not interested in anticoagulation started on Cardizem CD today AM. due to frequent PVC's will check Echo (2) DM2 (diabetes mellitus, type 2) Comment: cont ISS, holding metformin (3) Inguinal hernia Comment: as per Dr. Robles (4) DVT prophylaxis Comment: heparin sc Status and Disposition: Medicine consult
[2017-02-18] MEDS: Diltiazem CD CAP* 240 MG PO SCH (09:28)
[2017-02-18] MEDS ORDERED: HYDROcodone/ACETAMIN 5-325 MG* 1 TAB PO PRN (10:59)
[2017-02-18] MEDS ORDERED: Acetaminophen TAB* 325 MG PO PRN (10:59)
--- NOTE | 2017-02-18 11:06 | PN ---
Progress Note - Progress Note Date of Service: 02/18/17 Note: Surgery Progress: S: POD #2. Hosp note noted. Echo later today. No c/o re: abd pain, N/V. Passing flatus. No BM. Would like to have more for diet. Diltiazen changed to po. O: Vital Signs - 8 hr 02/18/17 02/18/17 02/18/17 04:00 05:00 06:00 Temperature 98.5 F Pulse Rate 118 126 116 Respiratory 20 20 20 Rate Blood Pressure 121/92 132/78 142/106 (mmHg) O2 Sat by Pulse 95 94 94 Oximetry 02/18/17 02/18/17 02/18/17 06:13 07:00 07:47 Temperature 98.2 F Pulse Rate 113 112 Respiratory 22 33 Rate Blood Pressure 123/85 107/69 (mmHg) O2 Sat by Pulse 94 95 Oximetry 02/18/17 02/18/17 02/18/17 08:00 09:00 10:44 Temperature Pulse Rate 118 107 Respiratory 26 22 Rate Blood Pressure 123/76 100/71 (mmHg) O2 Sat by Pulse 95 93 94 Oximetry Intake and Output Last 24 Hours 02/16/17 02/17/17 02/18/17 02/19/17 06:59 06:59 06:59 06:59 Intake Total 2840 4704 Output Total 800 1900 Balance 2040 2804 Weight 185 lb 13.595 oz 200 lb 9.93 oz Intake: IV Fluids 2675 2863 ABX - CEFEPIME 15 LR 1595 2836 NS 50ML, Cefazolin 1G 50 NS 50ML, Cefazolin 2G 50 magnesium 10 IVPB 165 175 ABX - CEFEPIME 60 LR 115 magnesium 115 Medicated IV 66 GEN - Diltiazem/Cardizem 66 Oral 1600 Output: Travis 800 1900 Heart: rapd, irreg Lungs: clear; no rales or wheezes Abd: mildly protuberant, tympanitic. BS hypoactive. Incisions ok. Small area of blush to left of midline incision- will monitor. Soft; no sig tenderness. Labs: Laboratory Tests 02/17/17 02/17/17 02/18/17 11:27 17:20 00:22 Sodium Potassium Glucose POC Glucose (mg/dL) 180 H 178 H 239 H 02/18/17 02/18/17 05:00 08:57 Sodium 132 L Potassium 3.9 Glucose 203 H POC Glucose (mg/dL) 210 H A: s/p repair incarcerated right inguinal/scrotal hernia and repair serosal tear cecum, doing well overall; afib/flutter; echo pend. Discussed w/ Dr. Robles. Will adv diet and d/c Travis. Poss d/c home later today vs tomorrow.
[2017-02-18] MEDS ORDERED: Insulin LISPRO* 1 UNITS UNIT SUBCUT SCH (11:30)
[2017-02-18] MEDS: Calcium Carbonate CHEW TAB* 500 MG (TUMS) PO PRN ×2 (14:56→22:39)
[2017-02-18] MEDS: Al Hydrox/Mg Hydrox/Simet LIQ* 30 ML UDC PO PRN ×2 (16:27→20:42)
[2017-02-19] MEDS: Al Hydrox/Mg Hydrox/Simet LIQ* 30 ML UDC PO PRN ×2 (00:47→05:29)
[2017-02-19] MEDS: Calcium Carbonate CHEW TAB* 500 MG (TUMS) PO PRN ×2 (04:17→15:59)
[2017-02-19] MEDS: Heparin VIAL(*) 5000 UNITS/ML VIAL (FIVE THOUSAND) SUBCUT SCH ×3 (05:29→22:12)
[2017-02-19] MEDS ORDERED: Digoxin TAB* 0.25 MG PO ONE (07:45)
--- NOTE | 2017-02-19 08:09 | PN ---
Subjective Date of Service: 02/19/17 Interval History: HOSPITALIST PROGRESS NOTE Patient seen and examined at bedside. He feels well today. Abdominal pain is minimal, able to pass flatus and stool, tolerating soft diet well. Anxious to go home. Denies chest pain, palpitations or dyspnea, but still requires supplemental O2. Family History: Unchanged from Admission Social History: Unchanged from Admission Past Medical History: Unchanged from Admission Objective Active Medications: Acetaminophen (Tylenol Tab*) 650 mg PO Q4H PRN PRN Reason: mild pain Hydrocodone Bitart/Acetaminophen ([place] 5-325 Tab*) 1 tab PO Q3H PRN PRN Reason: PAIN - MODERATE Al Hydrox/Mg Hydrox/Simethicone (Maalox Plus*) 30 ml PO Q4H PRN PRN Reason: DISCOMFORT Last Admin: 02/19/17 05:29 Dose: 30 ml Calcium Carbonate (Tums*) 1,000 mg PO Q6H PRN PRN Reason: GERD, GASTRIC DISCOMFORT Last Admin: 02/19/17 04:17 Dose: 1,000 mg Dextrose (D50w Syringe 50 Ml*) 12.5 gm IV PUSH .FOR FS < 60 - SS PRN PRN Reason: FS < 60 Diltiazem HCl (Cardizem Cd Cap*) 240 mg PO DAILY [facility] Last Admin: 02/18/17 09:28 Dose: 240 mg Heparin Sodium (Porcine) (Heparin Vial(*)) 5,000 units SUBCUT Q8HR [facility] Last Admin: 02/19/17 05:29 Dose: 5,000 units Hydromorphone HCl (Dilaudid Iv*) 0.5 mg IV Q1H PRN PRN Reason: PAIN - SEVERE Last Admin: 02/16/17 17:23 Dose: 0.5 mg Metoprolol Tartrate (Lopressor Iv*) 5 mg IV Q6H PRN PRN Reason: HEART RATE/PULSE GREATER THAN: Last Admin: 02/18/17 01:50 Dose: 5 mg Ondansetron HCl (Zofran Inj*) 4 mg IV Q4H PRN PRN Reason: NAUSEA/VOMITING Last Admin: 02/18/17 04:54 Dose: 4 mg Vital Signs 02/18/17 02/19/17 02/19/17 23:54 02:05 03:35 Temperature 98.5 F 98.3 F Pulse Rate 108 118 Respiratory 16 18 Rate Blood Pressure 117/68 122/68 (mmHg) O2 Sat by Pulse 94 94 96 Oximetry Oxygen Devices in Use Now: Nasal Cannula - at 3 liters Appearance: Pleasant gentleman sitting up in a chair in NAD. Eyes: No Scleral Icterus Ears/Nose/Mouth/Throat: Mucous Membranes Moist Neck: Trachea Midline Respiratory: Symmetrical Chest Expansion and Respiratory Effort, Clear to Auscultation Cardiovascular: - - Normal S1 and S2, irregularly irregular Abdominal: - - Soft, mild incisional tenderness, erythema present around midline /right inguinal incisions, BS+ Extremities: No Edema Neurological: Alert and Oriented x 3, NL Muscle Strength and Tone Nutrition: Taking PO's Result Diagrams: 02/19/17 13:30 02/18/17 05:00 Assess/Plan/Problems-Billing Assessment: Mr. Troncoso is a 71 yo M with PMH of atrial flutter, HLD and type 2 DM who presented for strangulated inguinal hernia repair. - Patient Problems (1) Inguinal hernia Comment: - S/p repair (with mesh) on 02/16/[address] Robles. - Incisional erythema suggestive of infection - surgery will start antibiotics. (2) Atrial flutter Comment: - Rate is better controlled today - continue Cardizem CD. - [id number] score is 2 (age, DM) - anticoagulation is indicated, but patient declines it. I explained his risk of stroke and he still declines it. I explained just low dose Aspirin will not confer protection agains stroke and he should consider full anticoagulation. He verbalizes understanding and wishes to discuss it further with his PCP after discharge, understanding he's at higher risk for CVA until he does so. - Echo showed EF 55-60%, with LA dilation and mild MR. (3) DM2 (diabetes mellitus, type 2) Comment: - Check FS ACHS and cover with Lispro SS. - If he continues to be >200, will add low dose basal insulin. (4) DVT prophylaxis Comment: - SQ heparin. (5) Full code status Status and Disposition: Hospitalist service will continue to follow with you.
[2017-02-19] MEDS: Diltiazem CD CAP* 240 MG PO SCH (09:46)
--- NOTE | 2017-02-19 09:55 | PN ---
Progress Note - Progress Note Date of Service: 02/19/17 SOAP: Subjective:POD#3 s/p open repair incarcerated Right inguinal and scrotal hernia eating ok,up walking;passing flatus and stool;voiding;minimal pain [] Objective:afebrile;abd:+bs,midline and right inguinal incisions intact with julisa,extensive erythema surrounds both incisions and suprapubic region;no drainage [] Assessment:onset of extensive erythema POD#3 s/p open repair incarcerated right inguinal and scrotal hernia [] Plan:will discuss new findings with Dr Robles; will need antibiotics;also awaiting echocardiogram results done this morning that Dr Pickard will review before possible discharge;patient is to be discharged on Cardizem per Dr. Pickard []
--- NOTE | 2017-02-19 10:52 | ECHO ---
Patient: CHARIS TRIVEDI [facility] Rec#: [id number] : 1945 Date: 02/19/2017 Age: 71y Height: 177.8 cm / 70.0 in Weight: 90.72 kg / 199.9 lbs Sex: M BSA: 2.09 Room#: 339 Admit Date#: 02/18/2017 Type: Inpatient Referring: Diane Anne MD Reading: Renzo Jean MD Chartered Wealth Manager: Jane Mullins RDCS CC: Juan Pablo Noble MD Transthoracic Echocardiogram Indication: Atrial Fibrillation BP: 122/68 HR: 108 Rhythm: A-Fib Findings History: DM, Aflutter, HLD, s/p inguinal hernia repair, former smoker. Technical Comments: The study quality is good. Completed at 0950. Left Ventricle: The left ventricular chamber size is normal. There is no left ventricular hypertrophy. Global left ventricular wall motion and contractility are within normal limits. There is normal left ventricular systolic function. The estimated ejection fraction is 55-60%. The assessment of diastolic function is non-diagnostic. Left Atrium: The left atrium is severely dilated. Right Ventricle: Moderator Band present. The right ventricle is moderately dilated. The right ventricular global systolic function is mildly reduced. Right Atrium: The right atrial cavity size is severely dilated. Aortic Valve: The aortic valve is trileaflet. The aortic valve leaflets are mildly thickened. There is a trace of aortic regurgitation. There is no evidence of aortic stenosis. Mitral Valve: The mitral valve leaflets are moderately thickened. There is mild mitral regurgitation. There is no evidence of mitral stenosis. Tricuspid Valve: The tricuspid valve leaflets are mildly thickened. There is mild to moderate tricuspid regurgitation. The right ventricular systolic pressure is estimated at 42 mmHg. There is evidence of mild pulmonary hypertension. There is no tricuspid stenosis. Pulmonic Valve: The pulmonic valve appears normal. There is a trace pulmonic regurgitation. There is no pulmonic stenosis. Pericardium: There is no significant pericardial effusion. A pericardial fat pad is visualized. Aorta: There is no dilatation of the ascending aorta. There is no dilatation of the aortic arch. The aortic root is normal in size. Pulmonary Artery: The main pulmonary artery appears normal. Venous: The inferior vena cava appears normal in size. There is a greater than 50% respiratory change in the inferior vena cava dimension. Summary: There was not any prior study for comparison. Conclusions Atrial fibrillation. There is normal left ventricular systolic function. The estimated ejection fraction is 55-60%. The left atrium is severely dilated. The right ventricle is moderately dilated. The right ventricular global systolic function is mildly reduced. The right atrial cavity size is severely dilated. The aortic valve leaflets are mildly thickened. There is mild to moderate tricuspid regurgitation. The right ventricular systolic pressure is estimated at 42 mmHg. There is evidence of mild pulmonary hypertension. There is mild mitral regurgitation. Measurements Name Value Normal Range RVIDd (AP) 2D 3.3 cm (0.9 - 2.6) RVDdMajor (2D) 5.4 cm (2.2 - 4.4) RAd ISD 4CH 6.7 cm (3.4 - 4.9) RA (A4C)W 5 cm (2.9 - 4.6) IVSd (2D) 1 cm (0.6 - 1) LVPWd (2D) 1 cm (0.6 - 1) LVIDd (2D) 4.5 cm (3.6 - 5.4) LVIDs (2D) 2.8 cm - LV FS (2D) 37 % (25 - 45) Aortic Annulus 2.1 cm (1.4 - 2.6) Ao root diameter (2D) 3.4 cm (2.1 - 3.5) Ascending Ao 3.1 cm (2.1 - 3.4) Aortic arch 2.4 cm (1.8 - 3.4) LA dimension (AP) 2D 4.8 cm (2.3 - 3.8) LAd ISD 4CH 7.3 cm (2.9 - 5.3) LA ISD 4CH W 5.5 cm (2.5 - 4.5) Name Value Normal Range LA ESV SP 4CH (A/L) 116 ml - LA ESV SP 2CH (A/L) 145 ml - LA ESV BP (A/L) 131 ml - LA ESV BP (A/L) index 62.69 ml/m2 - LA ESV SP 4CH (MOD) 106 ml - LA ESV SP 2CH (MOD) 136 ml - Name Value Normal Range MV E-wave Vmax 0.8 m/sec - MV deceleration time 137.6 msec - LV septal e' Vmax 0.1 m/sec - LV lateral e' Vmax 0.13 m/sec - LV E:e' septal ratio 8 ratio - LV E:e' lateral ratio 7.27 ratio - Name Value Normal Range AV Vmax 1.02 m/sec - AV VTI 17.29 cm - AV peak gradient 4.18 mmHg - AV mean gradient 2.44 mmHg - LVOT Vmax 0.87 m/sec - LVOT VTI 11 cm - LVOT peak gradient 3.08 mmHg - LVOT mean gradient 1.74 mmHg - BERNADETTE Vmax 0.76 m/sec - Name Value Normal Range TR Vmax 2.8 m/sec - TR peak gradient 31 mmHg - RAP 3 mmHg - RVSP 42 mmHg - IVC diameter 2.05 cm - Name Value Normal Range PV Vmax 0.76 m/sec - PV peak gradient 2.35 mmHg -
[2017-02-19] MEDS: ceFAZolin 2 GM PREMIX (*) 100 ML IVPB SCH ×2 (12:02→19:55)
[2017-02-19 13:39] LABS: Hematocrit 34 % (42-52); Hemoglobin 11.7 g/dl (14.0-18.0); Mean Corpuscular HGB Conc 34 g/dl (31-36); Mean Corpuscular Hemoglobin 32 pg (27-31); Mean Corpuscular Volume 92 fL (80-94); Mean Platelet Volume 7 um3 (7.4-10.4); Red Blood Count 3.69 10^6/ul (4.0-5.4); Red Cell Distribution Width 14 % (10.5-15); White Blood Count 12.2 10^3/ul (3.5-10.8)
[2017-02-19] MEDS ORDERED: Dextrose 50% Syringe 50 ML* 25 GM/50 ML SYRINGE IV PUSH PRN (15:23)
[2017-02-19] MEDS: Insulin LISPRO* 1 UNITS UNIT SUBCUT SCH ×2 (18:32→22:17)
--- NOTE | 2017-02-19 20:08 | CONS ---
CONSULTATION REPORT: DATE OF CONSULT/DICTATION: 02/19/17 REQUESTING PHYSICIAN: Dr. Robles. CONSULTING SERVICE: Infectious Disease. REASON FOR CONSULT: 1. Status post inguinal hernia repair, now with incisional cellulitis, no fluctuance, no drainage. I do not think there is an underlying abscess. Usually staph and strep. 2. Atrial fibrillation. 3. Diabetes. RECOMMENDATION: Agree with cefazolin 2 g IV every 8 hours. We will follow his symptoms here and as long as he has continued to improve, we can change him over to Keflex for discharge. If not improving, the options would include adding anaerobic coverage given the proximity to bowel during the surgery or vancomycin for MRSA, though I think we have time to wait on adding further agents. HISTORY OF PRESENT ILLNESS: This is a 71-year-old man admitted on 02/16/17 with incarcerated inguinal hernia, taken to the operating room that day for laparotomy, reduction of the incarcerated right inguinal hernia, and open right inguinal hernia repair with mesh, and repair of serosal injury to cecum. Incisions intact. He was noted to have a tiny area of redness on the left side of the incision yesterday and then redness along the incision today. He does not have pain except when he coughs. He had a low-grade fever overnight. He has been eating okay. There has been no fluid draining from incision. PAST MEDICAL HISTORY: 1. Type 2 diabetes. 2. Atrial flutter. 3. Urethral stricture, status post urethral dilation. 4. Hyperlipidemia. 5. Status post inguinal hernia repair on the right. MEDICATIONS: 1. Tylenol. 2. Calcium carbonate. 3. Diltiazem. 4. Vicodin p.r.n. 5. Heparin subcutaneous injection. 6. Cefazolin 2 g every 8 hours. 7. Metoprolol. ALLERGIES: CODEINE, LIPITOR, and SUDAFED. FAMILY HISTORY: No recurrent infections. SOCIAL HISTORY: He lives with his . No travel. REVIEW OF SYSTEMS: All negative to full review of systems except as noted above. PHYSICAL EXAM: Vital Signs: Temperature 37.7, heart rate 100, respiratory rate 16, blood pressure 116/65, O2 sat 94% on 2 L. General: He is awake, not in distress. Neurologic: He is oriented x3. Follows all commands. HEENT: There is no conjunctival hemorrhage. Oropharynx without lesions. Neck is supple. Lymph Nodes: There is no inguinal, axillary, or epitrochlear lymphadenopathy. Heart is irregularly irregular and tachycardic without murmurs. Lungs are clear to auscultation bilaterally. Abdomen: Soft, nontender, nondistended. There are bowel sounds present. Skin: There is no splinter hemorrhage. There is an incision from the umbilicus down to the right groin without any fluctuance, crepitus, or tenderness. There is a rim of erythema along the incision with mild warmth. Musculoskeletal: There is no spine tenderness to palpation. LABORATORY DATA: White blood cell count 10 on admission. Creatinine was 0.7 yesterday. Please see impressions and recommendations as outlined above. Thank you for asking me to see Mr. Troncoso in consultation. [id number]/[id number] #: [id number] DAVID
--- NOTE | 2017-02-19 20:31 | RAD ---
INDICATION: Cough COMPARISON: None TECHNIQUE: An AP portable view obtained at 1930 hours is submitted. FINDINGS: Bones/Soft Tissues: There are no acute bony findings. Cardiomediastinal: The cardiomediastinal silhouette is normal. Lungs: There is mild infiltrate or atelectasis in the left lung base. There may be a small left-sided effusion. Minimal linear change right lung base likely related to atelectasis. Pleura: There are no pleural effusions. Other: None IMPRESSION: MILD BIBASILAR INFILTRATE OR ATELECTASIS. SUGGEST FOLLOW-UP INDICATED.
[2017-02-20] MEDS: ceFAZolin 2 GM PREMIX (*) 100 ML IVPB SCH (03:58)
[2017-02-20] MEDS: Heparin VIAL(*) 5000 UNITS/ML VIAL (FIVE THOUSAND) SUBCUT SCH ×3 (05:45→22:36)
[2017-02-20] MEDS ORDERED: NS 0.9% 1000 ML* 1,000 ML IV SCH (07:15)
[2017-02-20 07:42] LABS: Hematocrit 31 % (42-52); Hemoglobin 10.6 g/dl (14.0-18.0); Mean Corpuscular HGB Conc 34 g/dl (31-36); Mean Corpuscular Hemoglobin 31 pg (27-31); Mean Corpuscular Volume 92 fL (80-94); Mean Platelet Volume 7 um3 (7.4-10.4); Red Blood Count 3.39 10^6/ul (4.0-5.4); Red Cell Distribution Width 14 % (10.5-15); White Blood Count 11.7 10^3/ul (3.5-10.8)
[2017-02-20 07:53] LABS: BUN/Creatinine Ratio 19.2 (8-20); C Reactive Protein 149.52 mg/L (< 5.00); Calcium 7.8 mg/dL (8.6-10.3); EGFR African American 125.8 (>60); EGFR Non-African American 97.8 (>60); Potassium 3.5 mmol/L (3.5-5.0)
[2017-02-20] MEDS ORDERED: Insulin GLARGINE(*) 1 UNITS UNIT SUBCUT SCH (08:00)
[2017-02-20] MEDS: Diltiazem CD CAP* 240 MG PO SCH (10:04)
[2017-02-20] MEDS: Insulin LISPRO* 1 UNITS UNIT SUBCUT SCH ×4 (10:04→22:39)
[2017-02-20] MEDS: ceFAZolin 2 GM PREMIX (*) 50 ML IVPB SCH ×2 (11:35→20:13)
[2017-02-20] MEDS ORDERED: Digoxin TAB* 0.25 MG PO ONE (12:23)
--- NOTE | 2017-02-20 12:43 | PN ---
Progress Note - Progress Note Date of Service: 02/20/17 SOAP: Subjective: Feels well. Notes redness is decreased. Normal BMs/flatus. Tolerating diet with good appetite. Objective: Vital Signs Temp 98.6 F 02/20/17 11:25 Pulse 118 02/20/17 11:25 Resp 16 02/20/17 11:25 BP 105/68 02/20/17 11:25 Pulse Ox 96 02/20/17 11:25 Gen: NAD Abd: incisions c/d/i; soft and minimally tender. BS+. Erythema is mild and receding from outlined area. Intake & Output 02/19/17 02/20/17 02/20/17 18:59 06:59 18:59 Intake Total 339 2644 100 Output Total 250 100 Balance 89 2544 100 Intake: IV Fluids 79 60 ABX - CEFAZOLIN 59 NS (0.9%) 20 60 IVPB 2224 ABX - CEFAZOLIN 119 NS (0.9%) 2105 Oral 260 360 100 Output: Urine 250 100 Other: Estimated Void Medium Medium Date of Last Bowel 02/20/17 Movement # Bowel Movements 1 1 Estimated Stool Amount Small Small # Voids 2 2 Assessment: POD#4 s/p laparotomy/reduction/repair of incarcerated RIH. A fib. He is stable and wound cellulitis is improving on IV abx. Hospitalist and ID management is appreciated. Plan: Will continue IV abx at least another 24 hr given the recent surgery and presence of foreign body (mesh).
[2017-02-20] MEDS: Al Hydrox/Mg Hydrox/Simet LIQ* 30 ML UDC PO PRN ×2 (13:13→18:15)
--- NOTE | 2017-02-20 15:28 | PN ---
Subjective Date of Service: 02/20/17 Interval History: HOSPITALIST PROGRESS NOTE Patient seen and examined at bedside. He feels well, in good spirits today. Pain is minimal, tolerating diet well, passing flatus and BM. Family History: Unchanged from Admission Social History: Unchanged from Admission Past Medical History: Unchanged from Admission Objective Active Medications: Acetaminophen (Tylenol Tab*) 650 mg PO Q4H PRN PRN Reason: mild pain Hydrocodone Bitart/Acetaminophen ([place] 5-325 Tab*) 1 tab PO Q3H PRN PRN Reason: PAIN - MODERATE Al Hydrox/Mg Hydrox/Simethicone (Maalox Plus*) 30 ml PO Q4H PRN PRN Reason: DISCOMFORT Last Admin: 02/20/17 13:13 Dose: 30 ml Calcium Carbonate (Tums*) 1,000 mg PO Q6H PRN PRN Reason: GERD, GASTRIC DISCOMFORT Last Admin: 02/19/17 15:59 Dose: 1,000 mg Dextrose (D50w Syringe 50 Ml*) 12.5 gm IV PUSH .FOR FS < 60 - SS PRN PRN Reason: FS < 60 Diltiazem HCl (Cardizem Cd Cap*) 240 mg PO DAILY [facility] Last Admin: 02/20/17 10:04 Dose: 240 mg Heparin Sodium (Porcine) (Heparin Vial(*)) 5,000 units SUBCUT Q8HR [facility] Last Admin: 02/20/17 13:54 Dose: 5,000 units Hydromorphone HCl (Dilaudid Iv*) 0.5 mg IV Q1H PRN PRN Reason: PAIN - SEVERE Last Admin: 02/16/17 17:23 Dose: 0.5 mg Cefazolin Sodium/Dextrose (Kefzol 2 Gm Premix(*)) 50 mls @ 200 mls/hr IVPB Q8H [facility] Last Admin: 02/20/17 11:35 Dose: 200 mls/hr Insulin Glargine (Lantus(*)) 10 units SUBCUT Q24H [facility] Last Admin: 02/20/17 10:05 Dose: 10 unit Insulin Human Lispro (Humalog*) 0 units SUBCUT ACHS MIKE PRN Reason: Protocol Last Admin: 02/20/17 13:15 Dose: 4 unit Metoprolol Tartrate (Lopressor Iv*) 5 mg IV Q6H PRN PRN Reason: HEART RATE/PULSE GREATER THAN: Last Admin: 02/18/17 01:50 Dose: 5 mg Ondansetron HCl (Zofran Inj*) 4 mg IV Q4H PRN PRN Reason: NAUSEA/VOMITING Last Admin: 02/18/17 04:54 Dose: 4 mg Vital Signs 02/20/17 02/20/17 11:25 13:15 Temperature 98.6 F Pulse Rate 118 90 Respiratory 16 Rate Blood Pressure 105/68 (mmHg) O2 Sat by Pulse 96 Oximetry Oxygen Devices in Use Now: Nasal Cannula - at 3 liters Appearance: Pleasant gentleman lying in bed in NAD. Eyes: No Scleral Icterus Ears/Nose/Mouth/Throat: Mucous Membranes Moist Neck: Trachea Midline Respiratory: Symmetrical Chest Expansion and Respiratory Effort, Clear to Auscultation Cardiovascular: - - Normal S1 and S2, irregularly irregular Abdominal: - - Soft, ND, NT, BS+. Mild erythema surrounding surgical incision, much improved from yesterday Neurological: Alert and Oriented x 3, NL Muscle Strength and Tone Lines/Tubes/Other Access: Clean, Dry and Intact Peripheral IV Nutrition: Taking PO's Result Diagrams: 02/20/17 07:27 02/20/17 07:27 Assess/Plan/Problems-Billing Assessment: Mr. Troncoso is a 71 yo M with PMH of atrial flutter, HLD and type 2 DM who presented for strangulated inguinal hernia repair. - Patient Problems (1) Inguinal hernia Comment: - S/p repair (with mesh) on 02/16/[address] Robles. - Incisional erythema suggestive of wound cellulitis - responding to Cefazolin. (2) Atrial flutter Comment: - More tachycardic today due to infection - continue Cardizem CD and add digoxin. - [id number] score is 2 (age, DM) - anticoagulation is indicated, but patient declines it. I explained his risk of stroke and he still declines it. I explained just low dose Aspirin will not confer protection agains stroke and he should consider full anticoagulation. He verbalizes understanding and wishes to discuss it further with his PCP after discharge, understanding he's at higher risk for CVA until he does so. - Echo showed EF 55-60%, with LA dilation and mild MR. (3) DM2 (diabetes mellitus, type 2) Comment: - Check FS ACHS and cover with Lispro SS. - Add low dose basal insulin. (4) DVT prophylaxis Comment: - SQ heparin. (5) Full code status Status and Disposition: Hospitalist service will continue to follow with you.
[2017-02-20] MEDS: Calcium Carbonate CHEW TAB* 500 MG (TUMS) PO PRN (22:42)
[2017-02-21] MEDS: Al Hydrox/Mg Hydrox/Simet LIQ* 30 ML UDC PO PRN ×2 (00:41→08:53)
[2017-02-21] MEDS: ceFAZolin 2 GM PREMIX (*) 50 ML IVPB SCH ×2 (04:23→12:11)
[2017-02-21] MEDS: Heparin VIAL(*) 5000 UNITS/ML VIAL (FIVE THOUSAND) SUBCUT SCH (05:46)
[2017-02-21 07:46] VITALS: BP 116/75
[2017-02-21] MEDS ORDERED: Insulin GLARGINE(*) 1 UNITS UNIT SUBCUT SCH (08:00)
[2017-02-21] MEDS: Diltiazem CD CAP* 240 MG PO SCH (09:13)
[2017-02-21] MEDS: Insulin LISPRO* 1 UNITS UNIT SUBCUT SCH ×2 (09:13→12:14)
--- NOTE | 2017-02-21 09:37 | PN ---
Subjective Date of Service: 02/21/17 Family History: Unchanged from Admission Social History: Unchanged from Admission Past Medical History: Unchanged from Admission Objective Active Medications: Acetaminophen (Tylenol Tab*) 650 mg PO Q4H PRN PRN Reason: mild pain Hydrocodone Bitart/Acetaminophen ([place] 5-325 Tab*) 1 tab PO Q3H PRN PRN Reason: PAIN - MODERATE Al Hydrox/Mg Hydrox/Simethicone (Maalox Plus*) 30 ml PO Q4H PRN PRN Reason: DISCOMFORT Last Admin: 02/21/17 08:53 Dose: 30 ml Calcium Carbonate (Tums*) 1,000 mg PO Q6H PRN PRN Reason: GERD, GASTRIC DISCOMFORT Last Admin: 02/20/17 22:42 Dose: 1,000 mg Dextrose (D50w Syringe 50 Ml*) 12.5 gm IV PUSH .FOR FS < 60 - SS PRN PRN Reason: FS < 60 Diltiazem HCl (Cardizem Cd Cap*) 240 mg PO DAILY [facility] Last Admin: 02/21/17 09:13 Dose: 240 mg Heparin Sodium (Porcine) (Heparin Vial(*)) 5,000 units SUBCUT Q8HR [facility] Last Admin: 02/21/17 05:46 Dose: 5,000 units Hydromorphone HCl (Dilaudid Iv*) 0.5 mg IV Q1H PRN PRN Reason: PAIN - SEVERE Last Admin: 02/16/17 17:23 Dose: 0.5 mg Cefazolin Sodium/Dextrose (Kefzol 2 Gm Premix(*)) 50 mls @ 200 mls/hr IVPB Q8H [facility] Last Admin: 02/21/17 04:23 Dose: 200 mls/hr Insulin Glargine (Lantus(*)) 15 units SUBCUT Q24H [facility] Last Admin: 02/21/17 09:12 Dose: 15 units Insulin Human Lispro (Humalog*) 0 units SUBCUT ACHS [facility] PRN Reason: Protocol Last Admin: 02/21/17 09:13 Dose: 1 unit Metoprolol Tartrate (Lopressor Iv*) 5 mg IV Q6H PRN PRN Reason: HEART RATE/PULSE GREATER THAN: Last Admin: 02/18/17 01:50 Dose: 5 mg Ondansetron HCl (Zofran Inj*) 4 mg IV Q4H PRN PRN Reason: NAUSEA/VOMITING Last Admin: 02/18/17 04:54 Dose: 4 mg Vital Signs 02/20/17 02/20/17 02/20/17 11:25 13:15 15:38 Temperature 98.6 F 98.6 F Pulse Rate 118 90 114 Respiratory 16 16 Rate Blood Pressure 105/68 134/74 (mmHg) O2 Sat by Pulse 96 94 Oximetry 02/20/17 02/20/17 02/20/17 16:00 19:47 20:02 Temperature 98.3 F Pulse Rate 109 Respiratory 18 18 Rate Blood Pressure 113/65 (mmHg) O2 Sat by Pulse 94 94 Oximetry 02/20/17 02/21/17 02/21/17 23:12 04:06 05:13 Temperature 98.8 F 98.3 F Pulse Rate 111 89 107 Respiratory 16 18 Rate Blood Pressure 118/69 94/45 112/70 (mmHg) O2 Sat by Pulse 92 90 95 Oximetry 02/21/17 02/21/17 07:25 09:08 Temperature 99.0 F Pulse Rate 111 Respiratory 18 18 Rate Blood Pressure 116/75 (mmHg) O2 Sat by Pulse 95 Oximetry Oxygen Devices in Use Now: Nasal Cannula - at 3 liters Result Diagrams: 02/20/17 07:27 02/20/17 07:27 Microbiology and Other Data: Microbiology 02/16/17 17:25 Nasal Screen MRSA (PCR)(OSCAR) - Final Nasal Mrsa Negative Assess/Plan/Problems-Billing Assessment: Mr. Troncoso is a 71 yo M with PMH of atrial flutter, HLD and type 2 DM who presented for strangulated inguinal hernia repair. - Patient Problems (1) Inguinal hernia Comment: - S/p repair (with mesh) on 02/16/[address] Robles. - Incisional erythema suggestive of wound cellulitis - responding to Cefazolin. (2) Atrial flutter Comment: - More tachycardic today due to infection - continue Cardizem CD and add digoxin. - [id number] score is 2 (age, DM) - anticoagulation is indicated, but patient declines it. I explained his risk of stroke and he still declines it. I explained just low dose Aspirin will not confer protection agains stroke and he should consider full anticoagulation. He verbalizes understanding and wishes to discuss it further with his PCP after discharge, understanding he's at higher risk for CVA until he does so. - Echo showed EF 55-60%, with LA dilation and mild MR. (3) DM2 (diabetes mellitus, type 2) Comment: - Check FS ACHS and cover with Lispro SS. - Add low dose basal insulin. (4) DVT prophylaxis Comment: - SQ heparin. (5) Full code status Status and Disposition: Hospitalist service will continue to follow with you.
--- NOTE | 2017-02-21 11:28 | DCNOTE ---
He started having drainage from the midline wound last night. He is having no fevers/chills/N/V. He denies pain. Vital Signs Temp 99.0 F 02/21/17 07:25 Pulse 111 02/21/17 07:25 Resp 18 02/21/17 09:08 BP 116/75 02/21/17 07:25 Pulse Ox 95 02/21/17 07:25 Gen: NAD Abd: erythema is improved; expressible cloudy drainage from lower 1/3 of ML wound; the wound was opened by removing julisa and a large amount of yellowish -brown purulent thin fluid was forthcoming. No discernable odor noted. Irrigation with NS performed and packed open with 4x4 gauze. Intake & Output 02/20/17 02/21/17 02/21/17 18:59 06:59 18:59 Intake Total 1025 1025 440 Output Total 0 0 Balance 1025 1025 440 Intake: Oral 1025 1025 440 Output: Urine 0 0 Other: Estimated Void Medium Medium Date of Last Bowel 02/20/17 Movement # Bowel Movements 0 Estimated Stool Amount Small Medium # Voids 1 1 Laboratory Results - last 24 hr 02/20/17 02/20/17 02/20/17 11:32 17:18 22:24 POC Glucose (mg/dL) 234 H 108 H 223 H 02/21/17 07:45 POC Glucose (mg/dL) 145 H A/P: 71 yo M s/p laparotomy/open reduction and repair of incarcerated RIH with mesh, complicated by rapid A fib and wound infection. He is improved and the wound infection is drained. Will discharge today on po antibiotics. Follow up in [facility] office tomorrow for packing change and to f/u culture results. Regular diet. Ambulate frequently. Discussed with patient and who agree.
--- NOTE | 2017-02-21 15:29 | PN ---
Hospitalist Progress Note HOSPITALIST ADDENDUM Patient evaluated earlier, no new complaints. Plan for discharge today. Would resume Metformin, d/c on Cardizem for rate control. Will need to f/u with PCP and discuss anticoagulation.
== END 2017-02-21 12:30 | disposition home or self-care (01) | DRG 221 ==
LOC: OR 08:37 → ICU 09:30 → OBSVTOIN 02-18 09:30 → SSU 02-18 16:11
PROVIDERS: ADMIT Surgery; ATTEND Surgery
PROC: 0DQH0ZZ Repair Cecum, Open Approach (ICD-10-PCS; 2017-02-16)
PROC: 0YU50JZ Supplement Right Inguinal Region with Synthetic Substitute, Open Approach (ICD-10-PCS; principal; 2017-02-16 10:15)
DX: K40.90 Unilateral inguinal hernia, without obstruction or gangrene, not specified as recurrent (principal); T81.4XXA Infection following a procedure, initial encounter; L03.311 Cellulitis of abdominal wall; I48.91 Unspecified atrial fibrillation; N13.8 Other obstructive and reflux uropathy; B95.61 Methicillin susceptible Staphylococcus aureus infection as the cause of diseases classified elsewhere; E11.9 Type 2 diabetes mellitus without complications; I10 Essential (primary) hypertension; I97.89 Other postprocedural complications and disorders of the circulatory system, not elsewhere classified; R33.9 Retention of urine, unspecified; E78.5 Hyperlipidemia, unspecified; Y83.8 Other surgical procedures as the cause of abnormal reaction of the patient, or of later complication, without mention of misadventure at the time of the procedure; Y92.239 Unspecified place in hospital as the place of occurrence of the external cause; Z87.891 Personal history of nicotine dependence; Z79.82 Long term (current) use of aspirin; Z79.84 Long term (current) use of oral hypoglycemic drugs; Z88.5 Allergy status to narcotic agent; Z88.2 Allergy status to sulfonamides; Z88.8 Allergy status to other drugs, medicaments and biological substances; Z83.3 Family history of diabetes mellitus; Z82.61 Family history of arthritis; Z82.3 Family history of stroke
CPT/HCPCS: 36415; 71010; 80048; 83605; 83735; 84443; 85025; 86140; 87070; 87076; 87077; 87185; 87186; 87205; 87640; 87641; 93005; 93306; 94760; A9270-GY; C1781; J0690; J0780; J1170; J1644; J2001; J2250; J2270; J2405; J2704; J3010; J3475